=== PATIENT | female | born 1975 | race Two or more races ===

== ENCOUNTER 2024-10-27 17:59 | Emergency (ER) | payer SELFPAY ==
[~2024-10-27] VITALS: Ht 170.2 cm; Wt 73.0 kg
[2024-10-27 18:08] VITALS: BP 124/76; PULSE 81; RESP 16; TEMP 36.8; O2SAT 98
== END 2024-10-27 19:10 | disposition home or self-care (01) ==
LOC: ER 17:59
DX: S06.0X0A Concussion without loss of consciousness, initial encounter (principal); Z88.8 Allergy status to other drugs, medicaments and biological substances; W22.09XA Striking against other stationary object, initial encounter; Y93.89 Activity, other specified; Y92.89 Other specified places as the place of occurrence of the external cause; Y99.8 Other external cause status
CPT/HCPCS: 99283